=== PATIENT | male | born 1950 | race Caucasian/White ===

== ENCOUNTER 2020-02-08 09:07 | Day surgery (SDC) | payer MEDICARE, MEDICAID, SELFPAY ==
[2020-02-06 14:00] VITALS: BMI 25.9
--- NOTE | 2020-02-08 09:30 | ANES.PREANE2 ---
Pre-Anesthetic Assessment Pre-Anesthetic Assessment: Height/Weight: Height 1.73 m Weight 77.564 kg Preop Diagnosis: be Proposed Procedure: Operation Date: 02/08/20 09:30 Proposed Procedures p EGD 98284 R10.9(Not Applicable) - Sina Leger MD Social: Social History: Tobacco (quit) and No alcohol Exam: Pre-Anes Outpt Exam: alert, oriented x 3, clear to auscultation bilaterally and regular rate & rhythm Airway: Submandibular: WNL Cervical ROM: WNL MP: 2 Dentition: Other (poor dentation) History/ROS: No significant history except as noted Pulmonary: Pulmonary: None reported CV/HEM: CV/HEM: HTN : : None reported Hepatic: Hepatic: None reported GI: GI: GERD Comments: Davenport's Esophogus Metabolic: Metabolic: None reported Musc/skel: Musc/skel: None reported Neuropsych: Neuropsych: None reported Anesthetic Plan: ASA status: 3 Anesthesia: Anesthesia Evaluation and MAC Risk of > 500 ml blood loss (7ml/kg in children): No PFSH Anesthesia PFSH: Medical History GERD (gastroesophageal reflux disease) HTN (hypertension), benign Family History Mother Brain tumor Cancer Father Heart disease Diabetes Social History Smoking and tobacco status: former smoker Alcohol intake: never History of recent travel: No Data Anesthesia Cardiac Studies: No Data to Display
[2020-02-08 09:34] VITALS: BP 124/80; PULSE 53; RESP 16; TEMP 36.1; O2SAT 94
[2020-02-08] MEDS: sodium chloride 0.9% 1,000 ML 30 ML IV (09:46)
--- NOTE | 2020-02-08 10:39 | W.PM.OPSFHP ---
Same Day Surgery H&P Indication for Procedure/HPI DATE OF PROCEDURE: February 08, 2020 CHIEF COMPLAINT/INDICATIONFOR SURGICAL PROCEDURE: History of Davenport's esophagus PREOP DIAGNOSIS: be PLANNED PROCEDRUE: Operation Date: 02/08/20 09:30 Proposed Procedures p EGD 86454 R10.9(Not Applicable) - Sina Leger MD Medications/Allergies* Home Medications Medication Instructions Recorded Confirmed Type magnesium 250 mg tablet 250 mg PO DAILY 10/11/19 02/08/20 History metoprolol tartrate 25 mg tablet 25 mg PO DAILY 10/11/19 02/08/20 History multivitamin 1 tab PO DAILY 10/11/19 02/08/20 History loratadine 10 mg PO DAILY 02/06/20 02/08/20 History Allergies/Adverse Reactions Allergy/AdvReac Type Severity Reaction Status Date / Time ibuprofen Allergy Unknown Verified 10/15/19 10:17 Penicillins Allergy Unknown Verified 10/15/19 10:17 Current Medications: Generic Name Dose Route Start Last Admin Trade Name Freq PRN Reason Stop Dose Admin Sodium Chloride 1,000 mls @ 30 mls/hr 02/08/20 09:30 02/08/20 09:46 Sodium Chloride 0.9% IV 02/09/20 09:29 30 mls/hr .Q24H REGIS Administration Pertinent History/Comorbid Conditions* Medical History (Updated 10/15/19 @ 11:04 by Sina Leger MD) GERD (gastroesophageal reflux disease) HTN (hypertension), benign Family History (Updated 10/11/19 @ 15:26 by Rachel Beasley LPN) Brain tumor Mother Diabetes Father Heart disease Father Cancer Mother Social History Smoking and tobacco status: former smoker Alcohol intake: never History of recent travel: No Pertinent Exam Findings alert, oriented x 3, clear to auscultation bilaterally, regular rate & rhythm, operative site marked and procedure specific exam findings Recommendations Surgery/Procedure today Coding Level of Care Code Acute Safety Deposit Clerk for Tonya Navas
[2020-02-08] MEDS: EPINEPHrine 0.1 mg/mL SYR 10 mL 1 MG IVP (10:45)
[2020-02-08 10:59] VITALS: BP 94/60; PULSE 59; RESP 14; TEMP 36.1; O2SAT 95
--- NOTE | 2020-02-08 11:02 | ANE.PACU2 ---
Inpatient post-anesthesia follow up: Airway intact: Yes Vital signs: Temperature 97.0 F Pulse Rate 59 Respiratory Rate 14 Blood Pressure 94/60 Pulse Oximetry 95 Oxygen Delivery Me thod Nasal Cannula Oxygen Flow Rate 4.0 Fraction of Inspir ed Oxygen Hydration adequate: Yes Nausea and vomiting: No Pain level: 1 Mental status: Baseline
[2020-02-08] MEDS: EPINEPHrine 1 mg/mL INJ (11:15)
== END 2020-02-08 11:20 | disposition home or self-care (01) ==
PROVIDERS: PCP Family Medicine; Visit Provider Internal Medicine
PROC: 0DJ08ZZ Inspection of Upper Intestinal Tract, Via Natural or Artificial Opening Endoscopic (ICD-10-PCS; CPT 43235; principal; 2020-02-08 09:30)
DX: R10.9 Unspecified abdominal pain (principal); K22.70 Barrett's esophagus without dysplasia; Z87.891 Personal history of nicotine dependence; I10 Essential (primary) hypertension; K21.9 Gastro-esophageal reflux disease without esophagitis; Z82.49 Family history of ischemic heart disease and other diseases of the circulatory system; Z83.3 Family history of diabetes mellitus
CPT/HCPCS: 12345; 43239; 88305; J0171; J2704; J7030

== ENCOUNTER → 2020-04-24 11:31 | Outpatient (BNVA) | payer MEDICARE, MEDICAID, SELFPAY | PROVIDERS: PCP Family Medicine; Visit Provider Urology | DX: R31.0 Gross hematuria (principal) | CPT/HCPCS: 81001 ==

== ENCOUNTER → 2021-04-28 10:49 | Outpatient (BNVA) | payer MEDICARE, MEDICAID, SELFPAY | PROVIDERS: PCP Family Medicine; Visit Provider Urology | DX: N40.1 Benign prostatic hyperplasia with lower urinary tract symptoms (principal) | CPT/HCPCS: 81003 ==

== ENCOUNTER → 2022-06-08 15:06 | Outpatient (BNVA) | payer MEDICARE, MEDICAID, SELFPAY | PROVIDERS: PCP Family Medicine; Visit Provider Urology | DX: N40.1 Benign prostatic hyperplasia with lower urinary tract symptoms (principal) | CPT/HCPCS: 51798; 81003; 99213 ==

== ENCOUNTER 2024-04-24 10:27 | Outpatient (CLI) | payer MEDICARE, MEDICAID, SELFPAY ==
--- NOTE | 2024-04-24 10:36 | CTR_ITS ---
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 Radiation optimization: All CT scans at this facility use at least one of these dose optimization techniques: automated exposure control; mA and/or kV adjustment per patient size (includes targeted exams where dose is matched to clinical indication); or iterative reconstruction. Contrast material: OMNI 350; Contrast volume: 100 ml; Contrast route: INTRAVENOUS (IV); COMPARISON: pelvic limited [id number] 03/19/2024 3:04 PM RADIATION DOSE METRICS: Total DLP (mGy-cm): 284.54 FINDINGS: Intestine: Visualized small and large intestine are unremarkable. Appendix: No evidence of appendicitis. Intraperitoneal space: Unremarkable. No free air. No significant fluid collection. Lymph nodes: Unremarkable. No enlarged lymph nodes. Reproductive: The prostate gland is abnormally enlarged. Urinary bladder: The bladder demonstrates distension and wall trabeculation. Bones/joints: Unremarkable. No acute fracture. No dislocation. Soft tissues: There is an oval lipoma lying in the left perineal region just beneath the scrotum. CT/CT pelvis w con* [id number] IMPRESSION: 1. Left-sided peroneal lipoma 2. Prostate enlargement with chronic bladder changes
[2024-04-24 11:52] LABS: Blood Urea Nitrogen 15 mg/dL (8-23)
[2024-04-24] MEDS: iohexol 350 mg/mL 500 mL Btl (per mL) PO (13:39)
[2024-04-24] MEDS: iohexol 350 mg/mL 500 mL Btl (per mL) IV (13:39)
== END 2024-04-24 10:28 | disposition home or self-care (01) ==
LOC: RAD 10:28
PROVIDERS: Radiology Diagnostic Radiology; PCP Family Medicine; Visit Provider Surgery
DX: D17.79 Benign lipomatous neoplasm of other sites (principal); N40.0 Benign prostatic hyperplasia without lower urinary tract symptoms; N32.89 Other specified disorders of bladder
CPT/HCPCS: 72193; 82565; 84520